=== PATIENT | male | born 1955 | race Caucasian/White ===

== ENCOUNTER 2020-10-15 16:46 | Outpatient (RCR) | payer OTHER | END 2020-10-19 | LOC: PT 16:46 | PROVIDERS: ATTEND Specialist | DX: M17.11 Unilateral primary osteoarthritis, right knee (principal) | CPT/HCPCS: 97139 ==

== ENCOUNTER 2020-11-12 17:00 | Outpatient (RCR) | payer OTHER | END 2020-11-19 | LOC: PT 17:00 | PROVIDERS: ATTEND Specialist | DX: M17.11 Unilateral primary osteoarthritis, right knee (principal) | CPT/HCPCS: 97139 ==